=== PATIENT | female | born 1985 | race Caucasian/White ===

== ENCOUNTER 2016-09-15 22:04 | Emergency (ER) | payer MEDICAID ==
[~2016-09-15] VITALS: Ht 157.5 cm; Wt 86.2 kg
[~2016-09-15 22:04] MED LIST: CIPRO500 MG PO; FLAGYL250 MG PO; PRENATAL VITAMI1 T10 PO
[2016-09-15 22:48] VITALS: BP 122/79
--- NOTE | 2016-09-16 00:30 | NUR ---
PATIENT LEFT WITHOUT BEING SEEN BY DR. CANALES. NO FURTHER CARE PROVIDED FOR PATIENT.
== END 2016-09-16 00:30 | disposition left against medical advice (07) ==
LOC: MED 22:04
DX: M54.5 Low back pain (principal); Z53.21 Procedure and treatment not carried out due to patient leaving prior to being seen by health care provider

== ENCOUNTER 2017-04-05 22:50 | Inpatient (IN) | payer MEDICAID ==
[~2017-04-05] VITALS: Ht 154.9 cm; Wt 90.7 kg
[~2017-04-05 22:50] MED LIST changes: +CIPR500T4 PO; -CIPRO500 MG PO; -FLAGYL250 MG PO; +METR250T2 PO; -PRENATAL VITAMI1 T10 PO
[2017-04-05] MEDS ORDERED: MORPHINE SULFATE 10 MG/ML SYR IVP PRN (23:35)
[2017-04-06] MEDS ORDERED: OXYTOCIN 20 UNITS/LR PREMIX 1,000 ML IV SCH (00:12)
[2017-04-06] MEDS ORDERED: CARBOPROST 250 MCG/ML AMP IM PRN (00:15)
[2017-04-06] MEDS ORDERED: METHYLERGONOVINE 0.2 MG/ML AMP IM SCH (00:15)
[2017-04-06] MEDS ORDERED: PROMETHAZINE 25 MG/ML VIAL IVP PRN (00:15)
[2017-04-06] MEDS ORDERED: OXYTOCIN 10 UNITS/ML VIAL IM SCH (00:15)
[2017-04-06 01:29] LABS: BASOPHILS # (AUTO) 0.1 K/uL (0.00-0.22); BASOPHILS % (AUTO) 1.8 % (0.0-2.0); EOSINOPHILS # (AUTO) 0.2 K/uL (0-0.4); EOSINOPHILS % (AUTO) 2.5 % (0.0-4.0); HEMATOCRIT 39.3 % (36-48); HEMOGLOBIN 12.7 g/dL (12.0-16.0); LYMPHOCYTES # (AUTO) 2.1 K/uL (2.5-16.5); LYMPHOCYTES % (AUTO) 25.3 % (20.5-51.1); MEAN CORPUSCULAR HEMOGLOBIN 27 pg (27-31); MEAN CORPUSCULAR HGB CONC 32 g/dL (33-37); MEAN CORPUSCULAR VOLUME 85 fL (80-94); MONOCYTES # (AUTO) 0.4 K/uL (0.8-1.0); MONOCYTES % (AUTO) 4.6 % (1.7-9.3); NEUTROPHILS # (AUTO) 5.5 K/uL (1.8-7.7); NEUTROPHILS % (AUTO) 65.8 % (42.2-75.2); PLATELET COUNT (AUTO) 217 K/uL (140-450); RED BLOOD CELL COUNT(AUTO) 4.63 MIL/uL (4.20-5.40); RED CELL DISTRIBUTION WIDTH 14.1 % (11.6-13.7); WHITE BLOOD COUNT (AUTO) 8.3 K/uL (4.8-10.8)
[2017-04-06] MEDS: LACTATED RINGERS 1,000 ML IV SCH ×3 (01:35→13:31)
[2017-04-06] MEDS ORDERED: AMPICILLIN 2,000 MG VIAL ONE (01:42)
[2017-04-06] MEDS ORDERED: NALBUPHINE HYDROCHLORIDE 10 MG/ML VIAL ONE ×2 (01:43→11:55)
[2017-04-06] MEDS: NALBUPHINE 10 MG/ML AMP IVP PRN ×2 (01:43→11:53)
[2017-04-06] MEDS ORDERED: PROMETHAZINE 25 MG/ML VIAL ONE ×2 (01:43→11:55)
[2017-04-06 01:45] LABS: ALBUMIN 2.6 g/dL (3.4-5.0); ANION GAP 15.2 (8-16); CARBON DIOXIDE 24.7 mmol/L (21-32); CREATININE 0.7 mg/dL (0.6-1.3); POTASSIUM 3.9 mmol/L (3.5-5.1); TOTAL BILIRUBIN 1.1 mg/dL (0.0-1.0)
[2017-04-06 02:12] VITALS: BP 133/69
[2017-04-06] MEDS ORDERED: AMPICILLIN 1,000 MG VIAL IVP SCH (04:00)
[2017-04-06 04:22] LABS: APPEARANCE,URINE CLOUDY (CLEAR); BILIRUBIN,URINE NEGATIVE (NEGATIVE); BLOOD, URINE 1+ (NEGATIVE); COLOR,URINE YELLOW (YELLOW); LEUKOCYTE ESTERASE ,URINE 2+ (NEGATIVE); NITRITE, URINE NEGATIVE (NEGATIVE); UGLUCOSE NEGATIVE (NEGATIVE)
[2017-04-06 04:29] LABS: BARBITURATE, URINE NEG. ng/ml (NEG <=200); BENZODIAZEPINE, URINE NEG. ng/mL (NEG <=200); CANNABINOID, URINE NEG. ng/mL (NEG <=50); COCAINE, URINE NEG. ng/mL (NEG <=300); OPIATE, URINE NEG. ng/mL (NEG <=2000); PHENCYCLIDINE SCREEN,URINE NEG. ng/mL (NEG <=25)
[2017-04-06 04:39] LABS: TRICHOMONAS,URINE Moderate /HPF (None Seen)
[2017-04-06] MEDS ORDERED: BETAMETH ACET/BETAMETH NA PH 30 MG/5 ML VIAL IM ONE (05:06)
[2017-04-06] MEDS ORDERED: BETAMETH ACET/BETAMETH NA PH 30 MG/5 ML VIAL IM SCH (06:00)
--- NOTE | 2017-04-06 08:11 | NUR ---
PATIENT HAS BEEN SCREENED AND CATEGORIZED LOW NUTRITION RISK. PATIENT WILL BE SEEN WITHIN 7 DAYS OF ADMISSION. 04/12/[address]
[2017-04-06] MEDS ORDERED: ROPIVACAINE 0.2%/NS PREMIX 250 ML EPI ONE (12:59)
[2017-04-06] MEDS ORDERED: ROPIVACAINE 0.2%/NS PREMIX 250 ML EPI SCH (13:10)
[2017-04-06] MEDS ORDERED: OXYTOCIN 10 UNITS/ML VIAL ONE (14:19)
[2017-04-06] MEDS ORDERED: OXYTOCIN 20 UNITS in LACTATED RINGERS 1,000 ML IV SCH (14:20)
[2017-04-06] MEDS ORDERED: METHYLERGONOVINE 0.2 MG/ML AMP IM PRN (14:45)
[2017-04-06] MEDS ORDERED: BENZOCAINE/MENTHOL 20%-0.5% 60 GM CAN TP PRN (14:45)
[2017-04-06] MEDS ORDERED: SODIUM PHOSPHATE 118 ML ENEM RC PRN (14:45)
[2017-04-06] MEDS ORDERED: MEASLES, MUMPS, AND RUBELLA 1 VIAL SQVAC PRN (14:45)
[2017-04-06] MEDS ORDERED: TEMAZEPAM 15 MG CAP PO PRN (14:45)
[2017-04-06] MEDS ORDERED: OXYTOCIN 10 UNITS/ML VIAL IM PRN (14:45)
[2017-04-06] MEDS ORDERED: oxyCODONE/APAP 5/325 MG 1 TAB TAB PO PRN (14:45)
[2017-04-06] MEDS ORDERED: METHYLERGONOVINE 0.2 MG TAB PO PRN (14:45)
[2017-04-06] MEDS ORDERED: DOCUSATE SOD/SENNA 50/8.6 MG 1 TAB PO SCH (21:00)
[2017-04-06] MEDS: IBUPROFEN 800 MG TAB PO PRN (21:48)
[2017-04-07 05:48] LABS: HEMATOCRIT 37.3 % (36-48); HEMOGLOBIN 12.1 g/dL (12.0-16.0)
[2017-04-07 06:26] LABS: RAPID PLASMA REAGIN NON-REACTIVE (Non Reactiv)
[2017-04-07 08:39] LABS: HEPATITIS B SURFACE ANTIGEN NEGATIVE (NEGATIVE)
[2017-04-07] MEDS: HYDROcodone/APAP 5/325 MG 1 TAB TAB PO PRN ×3 (08:44→20:02)
[2017-04-07] MEDS ORDERED: DOCUSATE SOD/SENNA 50/8.6 MG 1 TAB PO SCH (21:00)
[2017-04-08] MEDS: HYDROcodone/APAP 5/325 MG 1 TAB TAB PO PRN (03:54)
[2017-04-08] MEDS: IBUPROFEN 800 MG TAB PO PRN (12:14)
== END 2017-04-08 16:15 | disposition home or self-care (01) | DRG 560 ==
LOC: MLD 22:50 → OBSVTOIN 04-06 00:12 → MLD 04-06 00:55 → MFCC 04-06 17:46
PROVIDERS: ADMIT Obstetrics & Gynecology; ATTEND Obstetrics & Gynecology
PROC: 10E0XZZ Delivery of Products of Conception, External Approach (ICD-10-PCS; principal; 2017-04-06)
PROC: 00HU33Z Insertion of Infusion Device into Spinal Canal, Percutaneous Approach (ICD-10-PCS; 2017-04-06)
PROC: 3E0R3CZ (ICD-10-PCS; 2017-04-06)
PROC: 3E0234Z Introduction of Serum, Toxoid and Vaccine into Muscle, Percutaneous Approach (ICD-10-PCS; 2017-04-06)
DX: O60.14X0 Preterm labor third trimester with preterm delivery third trimester, not applicable or unspecified (principal); Z68.41 Body mass index [BMI] 40.0-44.9, adult; E66.9 Obesity, unspecified; O99.214 Obesity complicating childbirth; O69.81X0 Labor and delivery complicated by cord around neck, without compression, not applicable or unspecified; Z37.0 Single live birth; Z3A.36 36 weeks gestation of pregnancy; Z23 Encounter for immunization
CPT/HCPCS: 36415; 51702; 59409; 76805; 80053; 80305; 81001; 85018; 85025; 86592; 86762; 86886; 86900; 86901; 87086; 87340; 87653-90; 90715; G0378; J0290; J0702; J2300; J2550; J2590; J2795; J7120; Q0092